=== PATIENT | male | born 1970 | race African-American/Black ===

== ENCOUNTER 2020-09-08 00:54 | Emergency (ER) | payer OTHER ==
[~2020-09-08] VITALS: Ht 188 cm; Wt 81.6 kg
[2020-09-08 00:59] VITALS: BP 150/58
[2020-09-08] MEDS ORDERED: LORAZEPAM 1 MG TABLET ONE (01:07)
[2020-09-08] MEDS: LORAZEPAM 1 MG TABLET PO ONE (01:11)
--- NOTE | 2020-09-08 01:11 | NUR ---
PT MEDICALLY CLEARED. IN CUSTODY.
== END 2020-09-08 01:19 ==
LOC: ER 00:57
DX: F41.9 Anxiety disorder, unspecified (principal)